=== PATIENT | male | born 1970 | race African-American/Black ===

== ENCOUNTER 2016-06-06 12:33 | Emergency (ER) | payer MEDICAID ==
[2016-06-06] MEDS ORDERED: Albuterol/Ipratropium Neb 3 ML AERS HHN ONE ×2 (13:08→13:20)
--- NOTE | 2016-06-06 13:18 | ED Physician Chart ---
Chief Complaint/HPI - Patient Information Date Seen:: 06/06/16 Time Seen:: 13:00 Chief Complaint:: shortness of breath and left elbow pain History of Present Illness:: Patient states he's had shortness of breath his entire life but is has apparently gotten worse the last 2 days. The last 2 days he's had had a cough productive of white sputum and diarrhea. He felt he had a low-grade fever but did not take his temperature. Yesterday developed left elbow pain without trauma. Today the pain also involves the left forearm. Allergies:: Allergies Allergy/AdvReac Type Severity Reaction Status Date / Time No Known Allergies Allergy Verified 06/06/16 12:53 Vitals:: Vital Signs - 8 hr 06/06/16 12:55 Temp 98.2 F HR 92 RR 18 BP 135/94 O2 Sat % 95 Historian:: Family Member, Friend Review:: Nurse's Note Reviewed Review of Systems - Review of Systems General/Constitutional: Fever Skin: No skin lesions Head: No headache Eyes: No loss of vision ENT: No earache Neck: No neck pain Cardio Vascular: No chest pain Pulmonary: SOB, Cough, Sputum, Wheezing GI: Diarrhea G/U: No dysuria Musculoskeletal: Bone or joint pain Endocrine: No polyuria, No polydipsia Psychiatric: No prior psych history, No depression Hematopoietic: No bruising Allergic/Immuno: No urticaria Neurological: No syncope, No focal symptoms Family Medical History - Family Member MOTHER Age: 76 Ethnicity: Non- Living Status: Hx Family Cancer: Yes (PANCREATIC) Physical Exam - Physical Examination General/Constitutional: Well-developed, well-nourished, Alert, No distress Head: Atraumatic Eyes: Lids, conjuctiva normal, PERRL Skin: Nl inspection, No rash, No skin lesions, No ecchymosis, Well hydrated, No lymphadenopathy ENMT: External ears, nose nl, TM canals nl, Nasal exam nl, Lips, teeth, gums nl Neck: No nuchal rigidity Respiratory: Nl effort/Exclusion Other Respiratory comments:: Diffuse 3 out of 4 expiratory wheezing Cardio Vascular: RRR, No murmur, gallop, rubs GI: No tenderness/rebounding/guarding, No organomegaly, No hernia Extremities: No tenderness or effusion, Full ROM, normal strength in all extremities Neuro/Psych: Alert/oriented, No focal deficits Misc: Normal back Labs/Radiology/EKG Results - Lab Results Results: Laboratory Results - last 24 hr 06/06/16 06/06/16 13:10 13:10 WBC 9.3 RBC 4.67 Hgb 14.4 Hct 42.8 MCV 91.6 MCH 30.9 H MCHC Differential 33.7 RDW 13.3 Plt Count 182 MPV 8.6 Neutrophils % 71.6 Lymphocytes % 15.7 L Monocytes % 7.0 Eosinophils % 3.5 Basophils % 2.2 H ESR 36 H Uric Acid 4.9 - Radiology Results Results: X-ray left elbow was negative for fracture. - EKG Interpretations Rate & Rhythm: normal sinus rhythm rate 85 [place]: left axis deviation Assessment - Assessment General Assessment: At 1500 patient's breathing was improved. Chest auscultation was unchanged with the diffuse expiratory wheezing. Patient continued to complain of proximal left forearm pain. ED Septic Shock - . Is Septic Shock (SBP<90, OR Lactate>4 mmol\L) present?: No - <6hrs of presentation: Vital Signs: Vital Signs - 8 hr 06/06/16 12:55 Temp 98.2 F HR 92 RR 18 BP 135/94 O2 Sat % 95 Reassessment (Disposition) - Reassessment Reassessment Condition:: Improved - Diagnosis Diagnosis:: Exacerbation of asthma; tendinitis left forearm - Aftercare/Follow up Instructions Aftercare/Follow-Up Instructions:: Refer to Discharge Instructions Medication Prescribed:: Prednisone 60 mg a day for 4 days; [place] 11/12/2024 #12 sig one 4 times a day when necessary - Patient Disposition Discharge/Transfer:: Home Condition at Disposition:: Stable, ED Discharge Plan - Patient Disposition Admit/Discharge/Transfer: PT DISCHARGED HOME Condition at Disposition: Stable Prescriptions: Hydrocodone/APAP 10 mg/325 mg [[place] 10 mg/325 mg] 1 tab PO QID PRN #12 tab PRN Reason: Pain (Moderate) Prednisone [Deltasone] 60 mg PO 10XD #0 tablet Instructions: Asthma, Adult, [id number], Tendinitis, [id number] Additional Instructions: TOLERATED.
[2016-06-06 13:20] LABS: % BASOPHILS 2.2 % (0.0-2.0); % EOSINOPHILS 3.5 % (0.0-5.0); % LYMPHOCYTES 15.7 % (20.0-50.0); % NEUTROPHILS 71.6 % (40.0-80.0); HEMATOCRIT 42.8 % (39.0-49.0); HEMOGLOBIN 14.4 gm/dL (13.2-17.3); MEAN CELL VOLUME 91.6 fl (80-99); MEAN CORPUSCULAR HEMOGLOBIN 30.9 pg (26.0-30.0); MEAN CORPUSCULAR HGB CONC 33.7 pg (28.0-36.0); MEAN PLATELET VOLUME 8.6 fl; NEUTROPHILE ABSOLUTE 6.6 Th/cmm (1.8-8.0); PLATELET COUNT 182 Th/cmm (150-400); RED BLOOD COUNT 4.67 Mil/cmm (4.30-5.70); RED CELL DISTRIBUTION WIDTH 13.3 % (11.5-20.0); WHITE BLOOD COUNT 9.3 Th/cmm (4.8-10.8)
--- NOTE | 2016-06-06 13:56 | Diagnostic Imaging Report ---
Left elbow (4 views) HISTORY: Pain The exam demonstrates evidence of a joint effusion with slight elevation of the anterior fat pad of the distal humerus and presence of a posterior fat pad. Though no discrete fracture line is seen, in the presence of recent trauma an occult fracture particularly of the radial head cannot be excluded. If needed, a follow-up exam in 5 days would provide for further assessment. IMPRESSION: 1. Evidence of a joint effusion. Though no discrete fracture line is seen, the presence of an effusion may be associated with an occult fracture particularly of the radial head. If necessary, a follow-up exam of 5 days would provide further assessment.
== END 2016-06-06 15:30 | disposition home or self-care (01) ==
LOC: ER 12:33
DX: J45.901 Unspecified asthma with (acute) exacerbation (principal); M77.9 Enthesopathy, unspecified
CPT/HCPCS: 99285; 96372; 94640; 93005; 73070; 36415; 85025; 85652; 84550; J1885

== ENCOUNTER 2017-05-19 15:28 | Emergency (ER) | payer MEDICAID ==
--- NOTE | 2017-05-19 15:57 | ED Physician Chart ---
ED Chief Complaint/HPI - Patient Information Date Seen:: 05/19/17 Time Seen:: 15:30 Chief Complaint:: Foreign Body History of Present Illness:: onset x several weeks of a left earlobe imbedded FB; pt denies trauma, H/As, neck pain, E/As, S/T, cough, C/P, SOB, Abd. Pain, A/N/V/D/C, fever, chills, or urinary s/s; pt's last tetanus shot: < 5 years; UTD Allergies:: Allergies Allergy/AdvReac Type Severity Reaction Status Date / Time No Known Allergies Allergy Verified 06/06/16 12:53 Historian:: Patient Review:: Nurse's Note Reviewed ED Review of Systems - Review of Systems General/Constitutional: No fever, No chills, No weight loss, No weakness, No diaphoresis, No edema, No loss of appetite Skin: No skin lesions, No rash, No bruising Head: No headache, No light-headedness Eyes: No loss of vision, No pain, No diplopia ENT: No earache, No nasal drainage, No sore throat, No tinnitus Neck: No neck pain, No swelling, No thyromegaly, No stiffness, No mass noted Cardio Vascular: No chest pain, No palpitations, No PND, No orthopnea, No edema Pulmonary: No SOB, No cough, No sputum, No wheezing GI: No nausea, No vomiting, No diarrhea, No pain, No melena, No hematochezia, No constipation, No hematemesis G/U: No dysuria, No frequency, No hematuria, No nacturia Musculoskeletal: No bone or joint pain, No back pain, No muscle pain Endocrine: No polyuria, No polydipsia Psychiatric: No prior psych history, No depression, No anxiety, No suicidal ideation, No homicidal ideation, No auditory hallucination, No visual hallucination Hematopoietic: No bruising, No lymphadenopathy Allergic/Immuno: No urticaria, No angioedema Neurological: No syncope, No focal symptoms, No weakness, No paresthesia, No headache, No seizure, No dizziness, No confusion, No vertigo ED Past Medical History - Past Medical History Obtainable: Yes Past Medical History: HTN Family History: HTN Social History: Non Smoker, No Alcohol, No Drug Use, Single Surgical History: None Psychiatricy History: None Medication: Reviewed Family Medical History - Family Member MOTHER Ethnicity: Non- Living Status: Hx Family Cancer: Yes (PANCREATIC) ED Physical Exam - Physical Examination General/Constitutional: Awake, Well-developed, well-nourished, Alert, No distress, GCS 15, Non-toxic appearing, Ambulatory Head: Atraumatic Eyes: Lids, conjuctiva normal, PERRL, EOMI Skin: Nl inspection, No rash, No skin lesions, No ecchymosis, Well hydrated, No lymphadenopathy ENMT: External ears, nose nl, TM canals nl, Nasal exam nl, Lips, teeth, gums nl , Oropharynx nl, Tonsils nl Other ENMT comments:: Left Earlobe FB; good NV functions Neck: Nontender, Full ROM w/o pain, No JVD, No nuchal rigidity, No bruit, No mass, No stridor Other Neck comments:: supple; no meningeal signs; no cervical tenderness Respiratory: Nl effort/Exclusion, Clear to Auscultation, No Wheeze/Rhonchi/Rales Cardio Vascular: RRR, No murmur, gallop, rubs, NL S1 S2, Carotid/Femoral/Distal pulses equal bilaterally GI: No tenderness/rebounding/guarding, No organomegaly, No hernia, Normal BS's, Nondistended, No mass/bruits, No McBurney tenderness Other GI comments:: no pulsatile masses : No CVA tenderness Extremities: No tenderness or effusion, Full ROM, normal strength in all extremities, No edema, Normal digits & nails Neuro/Psych: Alert/oriented, DTR's symmetric, Normal sensory exam, Normal motor strength, Judgement/insight normal, Mood normal, Normal gait, No focal deficits Misc: Normal back, No paraspinal tenderness ED Assessment - Procedures Procedures:: Complete Removal of left earlobe Foreign Body with Hemostat; no complications; no bleeding; pt tolerated the procedure well; Informed Consent: Procedure/risk/benefits explained by MD: Yes (Complete Removal of Left Earl[place] Foreign Body) ED Septic Shock - . Is Septic Shock (SBP<90, OR Lactate>4 mmol\L) present?: No ED Reassessment (Disposition) - Reassessment Reassessment:: pt is asymptomatic upon discharge Reassessment Condition:: Improved - Diagnosis Diagnosis:: Dx: Left [place]obe Foreign Body; Left [place]obe Foreign Body Removal; Left [place] Puncture Wound - Aftercare/Follow up Instructions Aftercare/Follow-Up Instructions:: Counseled pt regarding lab results/diagnosis & need follow up, Refer to Discharge Instructions, Counseled pt & family regarding lab results/diagnosis & need follow up Medication Prescribed:: Rx; Keflex 500mg po qid x 10 days; Neosporin Ointment bid x 14 days; Wound Care/ FB Removal Care Instructions - Patient Disposition Discharge/Transfer:: Home Condition at Disposition:: Stable, Improved (RTER prn if existing s/s reoccur and/or get worse and/or any other new s/s occur; ACIs given for all above Dx; refer to ENT Specialist/Customer Pricing Manager JB; F/U with PMD in one day or prn; RTER prn if concerned)
== END 2017-05-19 16:30 | disposition home or self-care (01) ==
LOC: ER 15:28
DX: T16.2XXA Foreign body in left ear, initial encounter (principal); I10 Essential (primary) hypertension; X58.XXXA Exposure to other specified factors, initial encounter; Y93.89 Activity, other specified; Y92.89 Other specified places as the place of occurrence of the external cause; Y99.8 Other external cause status
CPT/HCPCS: Z7502; Z7610

== ENCOUNTER 2018-02-25 15:23 | Emergency (ER) | payer MEDICAID ==
[2018-02-25] MEDS ORDERED: Albuterol/Ipratropium Neb 3 ML AERS HHN ONE ×2 (15:28→15:30)
[2018-02-25] MEDS ORDERED: Aspirin 81mg Chewable Tab PO STA (15:30)
--- NOTE | 2018-02-25 16:27 | ED Physician Chart ---
ED Chief Complaint/HPI - Patient Information Date Seen:: 02/25/18 Time Seen:: 15:25 Chief Complaint:: Dyspnea History of Present Illness:: onset x one day of dyspnea, wheezing, pleuritic C/Ps, cough, and congestion; pt denies trauma, H/As, S/T, neck pain, Abd. Pain, A/N/V/D/C, fever, chills, or urinary s/s Allergies:: Allergies Allergy/AdvReac Type Severity Reaction Status Date / Time pollen extracts Allergy Verified 02/25/18 15:33 dust Allergy Uncoded 02/25/18 15:33 Vitals:: Vital Signs - 8 hr 02/25/18 02/25/18 15:29 15:34 Temp 98.2 F HR 126 117 RR 20 24 BP 133/94 O2 Sat % 97 95 Historian:: Patient Review:: Nurse's Note Reviewed, Old Chart Reviewed ED Review of Systems - Review of Systems General/Constitutional: No fever, No chills, No weight loss, No weakness, No diaphoresis, No edema, No loss of appetite Skin: No skin lesions, No rash, No bruising Head: No headache, No light-headedness Eyes: No loss of vision, No pain, No diplopia ENT: No earache, No nasal drainage, No sore throat, No tinnitus Neck: No neck pain, No swelling, No thyromegaly, No stiffness, No mass noted Cardio Vascular: Chest pain, No palpitations, No PND, No orthopnea, No edema Pulmonary: Cough, No sputum, Wheezing GI: No nausea, No vomiting, No diarrhea, No pain, No melena, No hematochezia, No constipation, No hematemesis G/U: No dysuria, No frequency, No hematuria, No nacturia Musculoskeletal: No bone or joint pain, No back pain, No muscle pain Endocrine: No polyuria, No polydipsia Psychiatric: No prior psych history, No depression, No anxiety, No suicidal ideation, No homicidal ideation, No auditory hallucination, No visual hallucination Hematopoietic: No bruising, No lymphadenopathy Allergic/Immuno: No urticaria, No angioedema Neurological: No syncope, No focal symptoms, No weakness, No paresthesia, No headache, No seizure, No dizziness, No confusion, No vertigo ED Past Medical History - Past Medical History Obtainable: Yes Past Medical History: Asthma/COPD Family History: HTN Social History: Non Smoker, No Alcohol, No Drug Use, Surgical History: None Psychiatricy History: None Medication: Reviewed Family Medical History - Family Member MOTHER History Unknown: Yes Ethnicity: Non- Living Status: Hx Family Cancer: Yes (PANCREATIC) ED Physical Exam - Physical Examination General/Constitutional: Awake, Well-developed, well-nourished, Alert, No distress, GCS 15, Non-toxic appearing, Ambulatory Head: Atraumatic Eyes: Lids, conjuctiva normal, PERRL, EOMI Skin: Nl inspection, No rash, No skin lesions, No ecchymosis, Well hydrated, No lymphadenopathy ENMT: External ears, nose nl, TM canals nl, Nasal exam nl, Lips, teeth, gums nl , Oropharynx nl, Tonsils nl Neck: Nontender, Full ROM w/o pain, No JVD, No nuchal rigidity, No bruit, No mass, No stridor Respiratory: Nl effort/Exclusion Other Respiratory comments:: Lungs: + Rales, Rhonchi, and Wheezes Cardio Vascular: RRR, No murmur, gallop, rubs, NL S1 S2, Carotid/Femoral/Distal pulses equal bilaterally GI: No tenderness/rebounding/guarding, No organomegaly, No hernia, Normal BS's, Nondistended, No mass/bruits, No McBurney tenderness, Rectum exam nl Other GI comments:: no pulsatile masses : No CVA tenderness Extremities: No tenderness or effusion, Full ROM, normal strength in all extremities, No edema, Normal digits & nails Neuro/Psych: Alert/oriented, DTR's symmetric, Normal sensory exam, Normal motor strength, Judgement/insight normal, Mood normal, Normal gait, No focal deficits Misc: Normal back, No paraspinal tenderness ED Labs/Radiology/EKG Results - Lab Results Comments:: Reviewed ED Septic Shock - . Is Septic Shock (SBP<90, OR Lactate>4 mmol\L) present?: No - <6hrs of presentation: Vital Signs: Vital Signs - 8 hr 02/25/18 02/25/18 15:29 15:34 Temp 98.2 F HR 126 117 RR 20 24 BP 133/94 O2 Sat % 97 95 ED Reassessment (Disposition) - Reassessment Reassessment Condition:: Improved - Diagnosis Diagnosis:: Dyspnea; Wheezing; Asthma; Cough; Chest Pain
[2018-02-25] MEDS ORDERED: Levofloxacin 500mg/100mL 500 MG/100 ML BAG IV ONE (17:27)
[2018-02-25 20:00] LABS: URINE SOURCE MIDSTREAM
[2018-02-25 20:28] LABS: URINE BILIRUBIN NEGATIVE (NEGATIVE); URINE BLOOD NEGATIVE (NEGATIVE); URINE GLUCOSE (UA) NEGATIVE (NEGATIVE); URINE KETONE NEGATIVE (NEGATIVE); URINE LEUKOCYTE ESTERASE NEGATIVE (NEGATIVE); URINE MICROSCOPIC INDICATED? YES; URINE NITRATE NEGATIVE (NEGATIVE); URINE PH 5.5 (4.6 - 8.0); URINE PROTEIN TRACE mg/dL (NEGATIVE)
[2018-02-25 20:54] LABS: URINE CLARITY CLEAR (CLEAR); URINE COLOR STRAW
[2018-02-25 20:55] LABS: URINE BACTERIA NONE SEEN /hpf (NONE SEEN); URINE EPITHELIAL CELLS OCCASIONAL /lpf (FEW); URINE RBC NONE SEEN /hpf (0-5)
--- NOTE | 2018-02-26 10:05 | Diagnostic Imaging Report ---
Portable chest x-ray History: Pain Allowing for portable technique the heart size is normal. No focal pulmonary parenchymal processes. No hilar or mediastinal abnormalities. Impression: No acute abnormalities.
== END 2018-02-25 19:02 | disposition left against medical advice (07) ==
LOC: ER 15:23
DX: J44.9 Chronic obstructive pulmonary disease, unspecified (principal); I20.9 Angina pectoris, unspecified; Z91.048 Other nonmedicinal substance allergy status
CPT/HCPCS: 71045-TC; 81001-TC; 93005; 94640; Z7502